=== PATIENT | female | born 1995 | race Caucasian/White ===

== ENCOUNTER 2017-04-07 11:57 | Emergency (ER) | payer SELFPAY ==
[2017-04-07 13:03] LABS: Basophils % (Auto) 0.3 % (0.0-1.8); Eosinophils % (Auto) 0.3 % (0.0-4.3); Mean Corpuscular HGB Conc 31 % (30-34); Mean Corpuscular Volume 73 fl (79-97); Platelet Count 216 K/mm3 (140-440); Red Blood Count 5.84 M/mm3 (3.65-5.03); Red Cell Distribution Width 14.4 % (13.2-15.2); White Blood Count 7.3 K/mm3 (4.5-11.0)
[2017-04-07 13:11] LABS: Anion Gap 18 mmol/L; Blood Urea Nitrogen 7 mg/dL (7-17); Calcium 9.1 mg/dL (8.4-10.2); Carbon Dioxide 21 mmol/L (22-30); Chloride 104.3 mmol/L (98-107); Glucose 86 mg/dL (65-100); Potassium 3.5 mmol/L (3.6-5.0); Sodium 140 mmol/L (137-145)
[2017-04-07 13:12] LABS: Hematocrit 42.6 % (30.3-42.9); Hemoglobin 13.2 gm/dl (10.1-14.3); Mean Corpuscular Hemoglobin 23 pg (28-32)
[2017-04-07 15:14] LABS: Bilirubin,Urine NEG (Negative); Blood,Urine NEG (Negative); Ketones,Urine 80 mg/dL (Negative); Leukocyte Esterase,Urine NEG (Negative); Mucus,Urine 3+ /HPF; Nitrite,Urine NEG (Negative)
--- NOTE | 2017-04-07 15:57 | XRay Report ---
Chest 2 views: History: Shortness of breath. Findings: Normal cardiomediastinal silhouette. Trachea is midline. No consolidation, pneumothorax or pleural effusion. Impression: No acute cardiopulmonary findings.
--- NOTE | 2017-04-07 19:35 | Emergency Department Report ---
ED Chest Pain HPI - General Chief Complaint: Chest Pain Stated Complaint: CHEST PAIN Time Seen by Provider: 04/07/17 18:59 Source: patient Mode of arrival: Ambulatory Limitations: Language Barrier - History of Present Illness Initial Comments: This is a 21-year-old Afro-[place] female who presents to the emergency department from home with the complaints of some midsternal chest pain and shortness of breath that has been going on intermittently since last night. It mostly occurs when she is "active." However the symptoms resolved just prior to presentation. She also has complaints of waking up every morning for the past month and having nausea and vomiting. She says it is bad enough to where she only can eat one small meal a day. She also complains of some insomnia and says she will spend the night staring at the ceiling and feeling anxious. She is a tobacco smoker but denies any illicit drug use. She does not have a primary care doctor. She denies any past medical history. No recent travel or sick contacts at home. - Related Data Previous Rx's Medication Instructions Recorded Last Taken Type Ondansetron [Zofran Odt] 4 mg PO Q8H PRN #10 tab.rapdis 04/07/17 Unknown Rx Allergies Allergy/AdvReac Type Severity Reaction Status Date / Time No Known Allergies Allergy Unverified 04/07/17 12:01 Heart Score - HEART Score History: Slightly suspicious EKG: Normal Age: < 45 Risk factors: No known risk factors Troponin: < normal limit HEART Score: 0 - Critical Actions Critical Actions: 0-3 pts:0.9-1.7%risk of adverse cardiac event.Candidate for discharge ED Review of Systems ROS: Stated complaint: CHEST PAIN Other details as noted in HPI Comment: All other systems reviewed and negative Constitutional: denies: chills, fever Eyes: denies: eye pain, eye discharge, vision change ENT: denies: ear pain, throat pain Respiratory: shortness of breath. denies: cough Cardiovascular: chest pain. denies: edema Gastrointestinal: denies: abdominal pain, nausea, diarrhea Genitourinary: denies: urgency, dysuria, discharge Musculoskeletal: denies: back pain, joint swelling, arthralgia Skin: denies: rash, lesions Neurological: denies: headache, weakness, paresthesias ED Past Medical Hx - Past Medical History Previous Medical History?: Yes Additional medical history: Vaginal dleivery 05-18-17 - Surgical History Past Surgical History?: No - Social History Smoking Status: Current Every Day Smoker Substance Use Type: Alcohol - Medications Home Medications: Home Medications Medication Instructions Recorded Confirmed Last Taken Type Ondansetron [Zofran Odt] 4 mg PO Q8H PRN #10 tab.scottdis 04/07/17 Unknown Rx ED Physical Exam - General Limitations: Language Barrier - Other Other exam information: GENERAL: The patient is well-developed well-nourished. HEENT: Normocephalic. Atraumatic. Extraocular motions are intact. Patient has moist mucous membranes. Pupils equal reactive to light bilaterally. NECK: Supple. Trachea is midline. CHEST/LUNGS: Clear to auscultation. There is no respiratory distress noted. HEART/CARDIOVASCULAR: Regular. There is no tachycardia. There is no gallop rub or murmur. ABDOMEN: Abdomen is soft, nontender. Patient has normal bowel sounds. There is no abdominal distention. SKIN: Skin is warm and dry. NEURO: The patient is awake, alert, and oriented. The patient is cooperative. The patient has no focal neurologic deficits. The patient has normal speech. MUSCULOSKELETAL: There is no tenderness or deformity. There is no limitation range of motion. There is no evidence of acute injury. ED Course Vital Signs 04/07/17 04/07/17 04/07/17 12:01 19:06 19:10 Temperature 98.4 F Pulse Rate 63 68 68 Respiratory 18 10 L 13 Rate Blood Pressure 108/76 Blood Pressure [Left] O2 Sat by Pulse 100 100 99 Oximetry 04/07/17 04/07/17 04/07/17 19:20 19:30 19:31 Temperature Pulse Rate 69 77 78 Respiratory 11 L 22 14 Rate Blood Pressure Blood Pressure 126/73 [Left] O2 Sat by Pulse 100 100 98 Oximetry 04/07/17 04/07/17 04/07/17 19:40 19:50 20:00 Temperature Pulse Rate 74 73 75 Respiratory 18 17 16 Rate Blood Pressure 114/62 Blood Pressure [Left] O2 Sat by Pulse 100 100 99 Oximetry 04/07/17 04/07/17 04/07/17 20:10 20:20 20:30 Temperature Pulse Rate 80 84 77 Respiratory 13 23 11 L Rate Blood Pressure 114/62 114/62 114/62 Blood Pressure [Left] O2 Sat by Pulse 100 99 98 Oximetry SONNY score - Sonny Score Age > 65: (0) No Aspirin use within the Past 7 Days: (0) No 3 or more CAD Risk Factors: (0) No 2 or more Angina events in past 24 hrs: (0) No Known CAD with more than 50% Stenosis: (0) No Elevated Cardiac Markers: (0) No ST Deviation Greater than 0.5mm: (0) No SONNY Score: 0 ED Medical Decision Making - Lab Data Result diagrams: 04/07/17 12:30 04/07/17 12:30 - EKG Data -: EKG Interpreted by Me EKG shows normal: sinus rhythm, axis, intervals, QRS complexes, ST-T waves Rate: normal - EKG Data When compared to previous EKG there are: previous EKG unavailable Interpretation: normal EKG - Radiology Data Radiology results: image reviewed interpreted by me: Chest x-ray did not show any acute process. Heart is normal shape and size. No effusions. No pneumothorax. No signs of pneumonia seen. - Medical Decision Making 21-year-old female presents emergency Department with multiple complaints that include midsternal chest pain that is since resolved, waking up every morning for the past month with nausea and vomiting, and insomnia. EKG does not show any signs of ST elevation [place], ischemia or dysrhythmia. Chest x-ray does not show any acute process. Patient's labs are mostly unremarkable including negative troponins 2. The patient has had some intermittent chest pains and shortness of breath she is asymptomatic at the time I'm seeing her in the emergency department. She is low on the well's score criteria. She is low on the heart score and has a SONNY score of 0 currently. Patient's urinalysis does not show any urinary tract infection and the patient is not . Patient did have 80 ketones in the urine showing some level of dehydration and appears consistent with her complaint of nausea and vomiting. She was able to display the ability to keep down some fluids while in the emergency department. Vital signs are stable throughout her ED course including being afebrile. All these reasons the patient appears safe for discharge home at this time. She was discharged home with some Zofran and referrals for primary care. We discussed sleep habits for her insomnia. She will return to the ER with any worsening of her symptoms or any acute distress. - Differential Diagnosis costochondritis, anxiety, pneumonia, Critical Care Time: No Critical care attestation.: If time is entered above; I have spent that time in minutes in the direct care of this critically ill patient, excluding procedure time. ED Disposition Clinical Impression: Dehydration Insomnia Qualifiers: Insomnia type: unspecified Qualified Code(s): G47.00 - Insomnia, unspecified Nausea and vomiting Qualifiers: Vomiting type: unspecified Vomiting Intractability: non-intractable Qualified Code(s): R11.2 - Nausea with vomiting, unspecified Chest pain Qualifiers: Chest pain type: unspecified Qualified Code(s): R07.9 - Chest pain, unspecified Disposition: TO HOME OR SELFCARE Is pt being admited?: No Condition: Stable Instructions: Chest Pain (ED), Dehydration (ED), Acute Nausea and Vomiting (ED) , Insomnia (ED) Additional Instructions: Please follow-up with a primary care physician in the next few days. Increase your oral rehydration. Return to the emergency department with any intractable vomiting, intractable fever, worsening of her symptoms, or any acute distress. Prescriptions: Ondansetron [Zofran Odt] 4 mg PO Q8H PRN #10 tab.rapdis PRN Reason: Nausea Referrals: [facility] [Outside] - 3-5 Days SANTIAGO DÍAZ MD [Staff Physician] - 3-5 Days PRIMARY MD JAYLENE [Primary Care Provider] - 3-5 Days
[2017-04-07 20:49] VITALS: BP 114/62
== END 2017-04-07 21:00 | disposition home or self-care (01) ==
LOC: ED 11:57
DX: E86.0 Dehydration (principal); G47.00 Insomnia, unspecified; R07.89 Other chest pain; R11.2 Nausea with vomiting, unspecified; R06.02 Shortness of breath; F17.210 Nicotine dependence, cigarettes, uncomplicated
CPT/HCPCS: 36415; 71020; 80048; 81001; 81025; 84443; 84484; 84702; 85025; 93005; 93010; 99284